=== PATIENT | male | born 1955 | race Two or more races ===

== ENCOUNTER 2018-05-02 16:44 | Outpatient (CLI) | payer OTHER | END 2018-05-02 16:55 | disposition home or self-care (01) | LOC: LAB 16:44 | DX: R97.20 Elevated prostate specific antigen [PSA] (principal) ==

== ENCOUNTER 2018-06-12 07:22 | Outpatient (CLI) | payer OTHER | END 2018-06-12 07:40 | disposition home or self-care (01) | LOC: TOM 07:22 | DX: R97.20 Elevated prostate specific antigen [PSA] (principal) ==

== ENCOUNTER → 2018-06-25 | Outpatient (CLI) | payer OTHER | END | disposition home or self-care (01) | LOC: NUCLEAR 09:30 | DX: C61 Malignant neoplasm of prostate (principal) | CPT/HCPCS: 78306; 78320; A9503 ==

== ENCOUNTER 2018-06-28 08:14 | Outpatient (CLI) | payer OTHER | END 2018-06-28 08:32 | disposition home or self-care (01) | LOC: TOM 08:14 | DX: N20.0 Calculus of kidney (principal); C61 Malignant neoplasm of prostate ==

== ENCOUNTER → 2020-05-05 09:40 | Outpatient (CLI) | payer OTHER | END | disposition home or self-care (01) | LOC: LAB 09:40 | PROVIDERS: ATTEND Radiology Diagnostic Radiology | DX: N20.0 Calculus of kidney (principal) ==

== ENCOUNTER 2020-05-05 10:29 | Outpatient (CLI) | payer OTHER | END 2020-05-05 10:33 | disposition home or self-care (01) | LOC: TOM 10:29 | PROVIDERS: ATTEND Urology | DX: C61 Malignant neoplasm of prostate (principal) ==

== ENCOUNTER 2020-05-12 07:38 | Outpatient (CLI) | payer OTHER | END 2020-05-12 07:45 | disposition home or self-care (01) | LOC: NUCLEAR 07:38 | PROVIDERS: ATTEND Urology | DX: C61 Malignant neoplasm of prostate (principal) | CPT/HCPCS: 78803; A9503 ==

== ENCOUNTER 2020-05-26 08:15 | Outpatient (CLI) | payer OTHER | END 2020-05-26 08:24 | disposition home or self-care (01) | LOC: TOM 08:15 | PROVIDERS: ATTEND Urology | DX: C61 Malignant neoplasm of prostate (principal) ==

== ENCOUNTER 2021-09-29 07:07 | Outpatient (CLI) | payer OTHER | END 2021-09-29 07:16 | disposition home or self-care (01) | LOC: SONOGRAMA 07:07 | PROVIDERS: ATTEND Family Medicine | DX: R10.84 Generalized abdominal pain (principal); C61 Malignant neoplasm of prostate; R74.8 Abnormal levels of other serum enzymes ==

== ENCOUNTER 2021-10-17 07:33 | Outpatient (CLI) | payer OTHER | END 2021-10-17 07:40 | disposition home or self-care (01) | LOC: NUCLEAR 07:33 | PROVIDERS: ATTEND Urology | DX: C61 Malignant neoplasm of prostate (principal); R74.8 Abnormal levels of other serum enzymes | CPT/HCPCS: 78306; A9503 ==

== ENCOUNTER 2021-11-30 13:32 | Outpatient (CLI) | payer OTHER | END 2021-11-30 13:58 | disposition home or self-care (01) | LOC: LAB 13:32 | DX: C61 Malignant neoplasm of prostate (principal) ==

== ENCOUNTER 2021-12-02 07:15 | Outpatient (CLI) | payer OTHER | END 2021-12-02 07:30 | disposition home or self-care (01) | LOC: TOM 07:15 | PROVIDERS: ATTEND Internal Medicine Hematology & Oncology | DX: C61 Malignant neoplasm of prostate (principal); M89.9 Disorder of bone, unspecified | CPT/HCPCS: 71260; 74177; Q9965 ==

== ENCOUNTER 2021-12-22 07:05 | Outpatient (CLI) | payer OTHER | END 2021-12-22 07:11 | disposition home or self-care (01) | LOC: MRI 07:05 | PROVIDERS: ATTEND Internal Medicine Hematology & Oncology | DX: C61 Malignant neoplasm of prostate (principal); M89.9 Disorder of bone, unspecified | CPT/HCPCS: 72197; Q9965 ==

== ENCOUNTER → 2022-01-24 | Outpatient (CLI) | payer OTHER | END | disposition home or self-care (01) | LOC: NUCLEAR 01-20 11:30 | PROVIDERS: ATTEND Internal Medicine Hematology & Oncology | DX: M89.9 Disorder of bone, unspecified (principal); C61 Malignant neoplasm of prostate ==

== ENCOUNTER 2023-04-06 09:39 | Outpatient (CLI) | payer OTHER | END 2023-04-06 09:43 | disposition home or self-care (01) | LOC: SONOGRAMA 09:39 | PROVIDERS: ATTEND Family Medicine | DX: R30.0 Dysuria (principal); N20.9 Urinary calculus, unspecified ==

== ENCOUNTER 2023-08-15 07:12 | Outpatient (CLI) | payer OTHER | END 2023-08-15 07:15 | disposition home or self-care (01) | LOC: NUCLEAR 07:12 | PROVIDERS: ATTEND Internal Medicine Hematology & Oncology | DX: C61 Malignant neoplasm of prostate (principal); M89.9 Disorder of bone, unspecified; D69.6 Thrombocytopenia, unspecified | CPT/HCPCS: 78306; A9503 ==

== ENCOUNTER 2024-01-23 07:16 | Outpatient (CLI) | payer OTHER | END 2024-01-23 07:18 | disposition home or self-care (01) | LOC: NUCLEAR 07:16 | PROVIDERS: ATTEND Internal Medicine Hematology & Oncology | DX: C61 Malignant neoplasm of prostate (principal); M89.9 Disorder of bone, unspecified; D69.6 Thrombocytopenia, unspecified | CPT/HCPCS: 78306; A9503 ==

== ENCOUNTER → 2025-06-03 09:27 | Outpatient (CLI) | payer OTHER | END | disposition home or self-care (01) | LOC: NUCLEAR 09:27 | PROVIDERS: ATTEND Internal Medicine Hematology & Oncology | DX: M89.9 Disorder of bone, unspecified (principal); M81.0 Age-related osteoporosis without current pathological fracture ==